=== PATIENT | female | born 1950 | race Caucasian/White ===

== ENCOUNTER 2018-06-12 18:49 | Emergency (ER) | payer OTHER ==
[2018-06-12] MEDS ORDERED: ONDANSETRON DISINTEGRATING 4 MG TAB PO ONE (19:03)
[2018-06-12] MEDS ORDERED: NS 1,000 ML IV ONE (19:03)
[2018-06-12 19:14] LABS: PLATELET COUNT 332 10^3/uL (150-400)
[2018-06-12] MEDS ORDERED: ONDANSETRON 4 MG/2 ML VIAL ONE (19:16)
[2018-06-12] MEDS ORDERED: ONDANSETRON 4 MG/2 ML VIAL IVP ONE (19:17)
--- NOTE | 2018-06-12 19:33 | EDPHY ---
H & P Stated Complaint: abd pain/N/V/D Time Seen by Provider: 06/12/18 19:00 HPI/ROS: CHIEF COMPLAINT: Nausea, loose stools HISTORY OF PRESENT ILLNESS: 68-year-old female presents with nausea and loose stools. 2 weeks ago she had an upper respiratory infection and a prolonged cough. Chest x-ray was unremarkable. After the URI symptoms were resolving, she had an episode of nausea vomiting and loose stools. She was seen in urgent care and given IV fluids and Zofran. She continued to feel somewhat fatigued, but the vomiting resolved within 24 hr. Today she had a recurrent episode of abdominal cramping, followed by loose stools and nausea. No vomiting today. REVIEW OF SYSTEMS: complete 10 point ROS reviewed and is negative except for the noted elements in the HPI - Personal History Current Tetanus/Diphtheria Vaccine: Yes Tetanus Vaccine Date: in the last 10 years - Medical/Surgical History Hx Asthma: No Hx Chronic Respiratory Disease: No Hx Diabetes: No Hx Cardiac Disease: No Hx Renal Disease: No Hx Cirrhosis: No Hx Alcoholism: No Hx HIV/AIDS: No Hx Splenectomy or Spleen Trauma: No Other PMH: Hysterectomy, Bilateral eye surgery for glaucoma, back surgery, arthroscopic surgery right knee, UTI WITH ECOLI - Social History Smoking Status: Never smoked - Physical Exam Exam: General Appearance: Alert, pleasant Eyes: Pupils equal and round, no conjunctival pallor or injection ENT, Mouth: Mucous membranes moist Neck: Normal inspection Respiratory: Lungs are clear to auscultation Cardiovascular: Regular rate and rhythm Gastrointestinal: Abdomen is soft and nontender Neurological: A&O, nonfocal, normal gait Skin: Warm and dry, no rash Extremities: Nontender, no pedal edema Psychiatric: Mood and affect normal Constitutional: Initial Vital Signs Temperature (C) 36.9 C 06/12/18 18:50 Heart Rate 72 06/12/18 18:50 Respiratory Rate 18 06/12/18 18:50 Blood Pressure 204/101 H 06/12/18 18:50 O2 Sat (%) 96 06/12/18 18:50 O2 Delivery Mode Room Air Allergies/Adverse Reactions: Sulfa (Sulfonamide Antibiotics) Allergy (Verified 06/12/18 18:56) Home Medications: Medication Instructions Recorded Calcium Carb W/Vit D [Calcium Carb 500 mg PO BIDMEAL 03/18/14 W/Vit D 500/200 (*)] Cholecalciferol Vit D3 [Vitamin D3 5,000 units PO DAILY 03/18/14 (*)] Herbals/Supplements -Info Only 1 ea PO DAILY 03/18/14 Levothyroxine [Synthroid 50 mcg 50 mcg PO DAILY06 03/18/14 (*)] Phenazopyridine HCl [Pyridium] 200 mg PO TID #10 tab 04/30/16 Cefaclor 250 mg PO TID 5 Days capsule 05/02/16 Ondansetron Odt [Zofran Odt 4 mg 4 mg PO Q4PRN PRN #7 tab 05/02/16 (*)] Sulfamethox/Tmp 800/160 mg 05/02/16 Medical Decision Making ED Course/Re-evaluation: This patient presents with recurrent nausea and loose stools. No actual diarrhea, the stools are formed. Abdominal exam is soft and nontender and I do not suspect small bowel obstruction or intra-abdominal infection. IV normal saline 1 L and Zofran 4 mg IV given. Laboratory tests discussed with the patient. Dietary instructions given. Elevated blood pressure discussed with the patient. BP usually normal. h/o elevated BP in ED's, think due to stress. Will obs for now. Repeat BP 162/85. Pt will check and record BP twice daily, then d/w PCP. Differential Diagnosis: Differential diagnosis includes though it is not limited to appendicitis, cholecystitis, diverticulitis, pyelonephritis, bowel perforation, small bowel obstruction. - Data Points Laboratory Results: Laboratory Results 06/12/18 19:02 06/12/18 19:02 06/12/18 06/12/18 19:02 19:02 WBC 8.49 10^3/uL 10^3/uL (3.80-9.50) RBC 4.25 10^6/uL 10^6/uL (4.18-5.33) Hgb 13.4 g/dL g/dL (12.6-16.3) Hct 39.2 % % (38.0-47.0) MCV 92.2 fL fL (81.5-99.8) MCH 31.5 pg pg (27.9-34.1) MCHC 34.2 g/dL g/dL (32.4-36.7) RDW 11.7 % % (11.5-15.2) Plt Count 332 10^3/uL 10^3/uL (150-400) MPV 8.0 fL L fL (8.7-11.7) Neut % (Auto) 70.9 % % (39.3-74.2) Lymph % (Auto) 20.5 % % (15.0-45.0) [place] % (Auto) 6.2 % % (4.5-13.0) Eos % (Auto) 1.3 % % (0.6-7.6) Baso % (Auto) 0.7 % % (0.3-1.7) Nucleat RBC Rel Count 0.0 % % (0.0-0.2) Absolute Neuts (auto) 6.02 10^3/uL 10^3/uL (1.70-6.50) Absolute Lymphs (auto) 1.74 10^3/uL 10^3/uL (1.00-3.00) Absolute Monos (auto) 0.53 10^3/uL 10^3/uL (0.30-0.80) Absolute Eos (auto) 0.11 10^3/uL 10^3/uL (0.03-0.40) Absolute Basos (auto) 0.06 10^3/uL 10^3/uL (0.02-0.10) Absolute Nucleated RBC 0.00 10^3/uL 10^3/uL (0-0.01) Immature Gran % 0.4 % % (0.0-1.1) Immature Gran # 0.03 10^3/uL 10^3/uL (0.00-0.10) Sodium 135 mEq/L mEq/L (135-145) Potassium 3.9 mEq/L mEq/L (3.3-5.0) Chloride 94 mEq/L L mEq/L (97-110) Carbon Dioxide 30 mEq/l mEq/l (22-31) Anion Gap 11 mEq/L mEq/L (8-16) BUN 14 mg/dL mg/dL (7-23) Creatinine 0.6 mg/dL mg/dL (0.6-1.0) Estimated GFR > 60 Glucose 106 mg/dL H mg/dL (70-100) Calcium 9.6 mg/dL mg/dL (8.5-10.4) Medications Given: Discontinued Medications Sodium Chloride (Ns) 1,000 mls @ 0 mls/hr IV EDNOW ONE; Wide Open PRN Reason: Protocol Stop: 06/12/18 19:04 Last Admin: 06/12/18 19:20 Dose: 1,000 mls Ondansetron HCl (Zofran Odt) 4 mg PO EDNOW ONE Stop: 06/12/18 19:04 Last Admin: 06/12/18 19:21 Dose: Not Given Ondansetron HCl (Zofran) 4 mg IVP EDNOW ONE Stop: 06/12/18 19:18 Last Admin: 06/12/18 19:20 Dose: 4 mg Departure - Departure Disposition: Home, Routine, Self-Care Clinical Impression: Abdominal cramping, Nausea Condition: Good Instructions: Abdominal Pain (ED) Additional Instructions: 1. Clear liquids for 24 hours. 2. Advance diet as tolerated. I suggest the BRAT diet to start: bananas, rice, applesauce and toast. 3. Return for worsening symptoms, persistent vomiting, abdominal pain, any concerns. 4. Follow-up with Dr. Pablo in the office. Referrals: Uzma Pablo MD [Primary Care Provider] - As per Instructions (Call to make an appointment.)
[2018-06-12 20:30] VITALS: BP 167/87
== END 2018-06-12 20:28 | disposition home or self-care (01) ==
DX: R25.2 Cramp and spasm (principal); R11.10 Vomiting, unspecified
CPT/HCPCS: 96374; J2405

== ENCOUNTER 2018-11-02 14:42 | Observation (INO) | payer OTHER ==
[2018-11-02 15:17] LABS: PLATELET COUNT 239 10^3/uL (150-400)
[2018-11-02] MEDS ORDERED: NITROGLYCERIN 0.4 MG BTL SL ONE ×2 (15:36→15:37)
--- NOTE | 2018-11-02 15:45 | EDPHY ---
H & P Stated Complaint: cp Time Seen by Provider: 11/02/18 14:57 HPI/ROS: HPI The patient presents with chest discomfort which she 1st noticed this morning at about 5:00 a.m.. Of note, the patient was diagnosed with hypertension 1 month ago and started on lisinopril which caused fatigue and a mild cough, thus 2 days ago she was switched to amlodipine which she has been taking. She awoke at 1:00 a.m. This morning feeling flushed with headache. She felt dizzy. She thought this was a side effect of her amlodipine. At about 4:00 a.m. She developed vomiting and some achiness of her jaw. She took an old Zofran tab with improvement of her symptoms by 9:00 a.m.. However at 5:00 a.m. She initially developed intermittent chest tightness which she describes as a midsternal ache which is non radiating. This lasts for about 5 min at a time and does not have any alleviating or exacerbating factors. In between these episodes she has about an hour and which she is chest pain-free. She does not have any shortness of breath or cough. She does not have a fever. She has never had chest pain before. She is very active and attended a spinning class 2 days ago without any chest pain or shortness of breath. REVIEW OF SYSTEMS 10 systems were reviewed and negative with the exception of the elements mentioned in the history of present illness. PMHx: Recently diagnosed with hypertension, hypothyroidism Soc Hx: Housed, nonsmoker FHx: No significant family history of CAD, mother at 62 of unrelated illness. PHYSICAL General Appearance: Alert, no distress Eyes: Pupils equal and round no pallor or injection ENT, Mouth: Mucous membranes moist Respiratory: There are no retractions, lungs are clear to auscultation Cardiovascular: Regular rate and rhythm Gastrointestinal: Abdomen is soft and non-tender, no masses, bowel sounds normal Neurological: A&O, moves all extremities Skin: Warm and dry, no rashes Musculoskeletal: Neck is supple non tender Extremities: symmetrical, full range of motion Psychiatric: Patient is oriented X 3, there is no agitation Source: Patient Exam Limitations: No limitations - Personal History Current Tetanus/Diphtheria Vaccine: Yes Current Tetanus Diphtheria and Acellular Pertussis (TDAP): Yes Tetanus Vaccine Date: in the last 10 years - Medical/Surgical History Hx Asthma: No Hx Chronic Respiratory Disease: No Hx Diabetes: No Hx Cardiac Disease: No Hx Renal Disease: No Hx Cirrhosis: No Hx Alcoholism: No Hx HIV/AIDS: No Hx Splenectomy or Spleen Trauma: No Other PMH: Hysterectomy, Bilateral eye surgery for glaucoma, back surgery, arthroscopic surgery right knee, UTI WITH ECOLI, HTN - Social History Smoking Status: Never smoked Constitutional: Initial Vital Signs Temperature (C) 37.2 C 11/02/18 14:53 Heart Rate 75 11/02/18 14:53 Respiratory Rate 16 11/02/18 14:53 Blood Pressure 133/78 H 11/02/18 14:53 O2 Sat (%) 94 11/02/18 14:53 O2 Delivery Mode Room Air Allergies/Adverse Reactions: Sulfa (Sulfonamide Antibiotics) Allergy (Verified 11/02/18 14:51) Home Medications: Medication Instructions Recorded Calcium Carb W/Vit D [Calcium Carb 500 mg PO BIDMEAL 03/18/14 W/Vit D 500/200 (*)] Cholecalciferol Vit D3 [Vitamin D3 5,000 units PO DAILY 03/18/14 (*)] Herbals/Supplements -Info Only 1 ea PO DAILY 03/18/14 Levothyroxine [Synthroid 50 mcg 50 mcg PO DAILY06 03/18/14 (*)] Astaxanthin 11/02/18 Losartan Potassium 11/02/18 Respaire-30 Capsule 11/02/18 Medical Decision Making - Diagnostics EKG Interpretation: EKG: Complete interpretation has been separately recorded in the [facility] archive. Summary impression: Sub [address] segment elevation in V1 and V2, there is ST segment depression in V4 through V6, there is no old for comparison. Imaging Results: Imaging Impressions Chest X-Ray 11/02/18 15:36 Impression: Hyperexpanded which can be seen with airways disease or COPD. Imaging: I viewed and interpreted images myself Differential Diagnosis: This is a 68-year-old female with recent diagnosis of hypertension, started amlodipine 2 days ago, presents with intermittent midsternal chest pain which she describes as aching and tight. Earlier in the morning she had vomiting, dizziness, aching of her jaw. All of these have resolved though she is left with intermittent chest pain. Currently, her chest pain is very mild though present. Her vital signs are normal with slightly elevated blood pressure of 140/70. In the emergency department, EKG was performed which showed some abnormalities. Initial troponin was 0. Remainder of labs were unremarkable. Nitroglycerin has been ordered. Differential diagnosis includes ACS, GERD, costochondritis. 3:46 p.m.- I consulted with the on-call webfed offset press operator Wes PA from [facility]. Their service will come to evaluate the patient. 4:33 p.m.- Patient is chest pain-free. She did receive nitroglycerin though did not have any chest pain preceding this. She was seen by the cardiology PA and staffed with Dr. Wilde. Plan for admission to the hospitalist service for repeat troponins and likely provocative testing tomorrow morning. Case discussed with Dr. Reynoso for admission. - Data Points Laboratory Results: Laboratory Results 11/02/18 15:08 11/02/18 15:08 11/02/18 11/02/18 11/02/18 15:12 15:08 15:08 WBC RBC Hgb Hct MCV MCH MCHC RDW Plt Count MPV Neut % (Auto) Lymph % (Auto) [place] % (Auto) Eos % (Auto) Baso % (Auto) Nucleat RBC Rel Count Absolute Neuts (auto) Absolute Lymphs (auto) Absolute Monos (auto) Absolute Eos (auto) Absolute Basos (auto) Absolute Nucleated RBC Immature Gran % Immature Gran # Sodium 132 mEq/L L mEq/L (135-145) Potassium 3.9 mEq/L mEq/L (3.5-5.2) Chloride 101 mEq/L mEq/L (97-110) Carbon Dioxide 23 mEq/l mEq/l (22-31) Anion Gap 8 mEq/L mEq/L (6-14) BUN 12 mg/dL mg/dL (7-23) Creatinine 0.6 mg/dL mg/dL (0.6-1.0) Estimated GFR > 60 Glucose 102 mg/dL H mg/dL (70-100) Calcium 9.3 mg/dL mg/dL (8.5-10.4) Total Bilirubin 1.2 mg/dL mg/dL (0.1-1.4) Conjugated Bilirubin 0.3 mg/dL mg/dL (0.0-0.5) Unconjugated Bilirubin 0.9 mg/dL mg/dL (0.0-1.1) AST 31 IU/L IU/L (14-46) ALT 33 IU/L IU/L (9-52) Alkaline Phosphatase 71 IU/L IU/L (38-126) POC Troponin I 0.00 ng/mL ng/mL (0.00-0.08) Total Protein 7.8 g/dL g/dL (6.3-8.2) Albumin 4.9 g/dL g/dL (3.5-5.0) TSH 0.543 uIU/mL uIU/mL (0.465-4.680) 11/02/18 15:08 WBC 7.76 10^3/uL 10^3/uL (3.80-9.50) RBC 4.45 10^6/uL 10^6/uL (4.18-5.33) Hgb 14.2 g/dL g/dL (12.6-16.3) Hct 41.7 % % (38.0-47.0) MCV 93.7 fL fL (81.5-99.8) MCH 31.9 pg pg (27.9-34.1) MCHC 34.1 g/dL g/dL (32.4-36.7) RDW 11.6 % % (11.5-15.2) Plt Count 239 10^3/uL 10^3/uL (150-400) MPV 8.3 fL L fL (8.7-11.7) Neut % (Auto) 85.5 % H % (39.3-74.2) Lymph % (Auto) 8.5 % L % (15.0-45.0) [place] % (Auto) 5.2 % % (4.5-13.0) Eos % (Auto) 0.0 % L % (0.6-7.6) Baso % (Auto) 0.5 % % (0.3-1.7) Nucleat RBC Rel Count 0.0 % % (0.0-0.2) Absolute Neuts (auto) 6.64 10^3/uL H 10^3/uL (1.70-6.50) Absolute Lymphs (auto) 0.66 10^3/uL L 10^3/uL (1.00-3.00) Absolute Monos (auto) 0.40 10^3/uL 10^3/uL (0.30-0.80) Absolute Eos (auto) 0.00 10^3/uL L 10^3/uL (0.03-0.40) Absolute Basos (auto) 0.04 10^3/uL 10^3/uL (0.02-0.10) Absolute Nucleated RBC 0.00 10^3/uL 10^3/uL (0-0.01) Immature Gran % 0.3 % % (0.0-1.1) Immature Gran # 0.02 10^3/uL 10^3/uL (0.00-0.10) Sodium Potassium Chloride Carbon Dioxide Anion Gap BUN Creatinine Estimated GFR Glucose Calcium Total Bilirubin Conjugated Bilirubin Unconjugated Bilirubin AST ALT Alkaline Phosphatase POC Troponin I Total Protein Albumin TSH Medications Given: Discontinued Medications Aspirin (Aspirin) 81 mg PO EDNOW ONE Stop: 11/02/18 16:38 Last Admin: 11/02/18 16:49 Dose: 81 mg Nitroglycerin (Nitrostat) 0.4 mg SL EDNOW ONE Stop: 11/02/18 15:37 Last Admin: 11/02/18 16:18 Dose: 0.4 mg Ondansetron HCl (Zofran) 4 mg IVP EDNOW ONE Stop: 11/02/18 16:29 Last Admin: 11/02/18 16:29 Dose: 4 mg Point of Care Test Results: Chemistry 11/02/18 15:12 POC Troponin I 0.00 ng/mL ng/mL (0.00-0.08) Departure - Departure Disposition: [facility] Inpatient Acute Clinical Impression: Abnormal EKG Chest pain Qualifiers: Chest pain type: unspecified Qualified Code(s): R07.9 - Chest pain, unspecified HTN (hypertension) Qualifiers: Hypertension type: essential hypertension Qualified Code(s): I10 - Essential ( primary) hypertension Condition: Fair
[2018-11-02] MEDS ORDERED: ONDANSETRON 4 MG/2 ML VIAL ONE (16:26)
[2018-11-02] MEDS ORDERED: ONDANSETRON 4 MG/2 ML VIAL IVP ONE (16:28)
[2018-11-02] MEDS ORDERED: ASPIRIN 81 MG CHEWABLE TAB PO ONE (16:37)
[2018-11-02] MEDS ORDERED: ASPIRIN 81 MG CHEWABLE TAB ONE (16:49)
[2018-11-02] MEDS ORDERED: NITROGLYCERIN 0.4 MG BTL SL PRN (17:16)
[2018-11-02] MEDS ORDERED: NS 1,000 ML IV SCH (17:45)
--- NOTE | 2018-11-02 17:53 | PDGENHP ---
<Karen Vidales - Last Filed: 11/02/18 18:17> History and Physical - Chief Complaint Chest pain - History of Present Illness HPI: This is a healthy, active 68 y/o female with hx of recent hypertension presenting with chest pain that started this morning. She was diagnosed one month prior with hypertension and was started on lisinopril but had to switch to amlodipine 2 days ago because lisinopril caused fatigue and a mild cough. This morning, she woke up at 1:00am with a feeling of anxiety and feeling flushed with a severe headache as well as dizziness. Around 4:00am, she developed vomiting (no hematemesis) x 4 bouts and achiness to bilateral jaw. She developed intermittent midsternal chest pressure/ache with an intensity 3/ 10. It would last 5 minutes and an hour would pass before the next CP. She has never experienced this before and thought either amlodipine or cold/flu were the cause for the symptoms. EKG was abnormal with sub 1mm ST elevation in V1 and V2 and ST depression in V4-V6. First troponin was negative. She received nitroglycerin in the ER and since that time, she is chest pain free but c/o mild nausea and headache still being present. She is being admitted for further diagnostic work-up and monitoring. Past Medical History 1. Recently dx'ed with hypertension a month ago (150s/90s) 2. Hypothyroidism Past Surgical History 1. Hysterectomy 2. Bilateral eye surgery for glaucoma 3. Scope of right knee 4. Back surgery Social 1. . Lives in [place]. Works at [employer] at a [employer]. 2. Denies tobacco or illicit drug use. Drinks 1 glass of wine/day. History Information - Allergies/Home Medication List Allergies/Adverse Reactions: Sulfa (Sulfonamide Antibiotics) Allergy (Verified 11/02/18 14:51) Home Medications: Cholecalciferol Vit D3 [Vitamin D3 2000 units tab (OTC)] 2,000 units PO DAILY [Last Taken Unknown] Herbals/Supplements -Info Only 1 ea PO DAILY 11/02/18 [Last Taken Unknown] Levothyroxine [Synthroid 25 mcg (*)] 25 mcg PO SUMOWEFR@06 11/02/18 [Last Taken Unknown] Levothyroxine [Synthroid 50 mcg (*)] 50 mcg PO DAILY06 11/02/18 [Last Taken Unknown] Losartan Potassium [Cozaar 25 mg (*)] 25 mg PO DAILY 11/02/18 [Last Taken Unknown] I have personally reviewed and updated: family history, medical history, social history, surgical history Past Medical History: See HPI list - Surgical History Additional surgical history: See HPI list - Family History Positive for: non-pertinent Additional family history: Mother at 62 y/o d/t suicide by drug overdose. Father is in great health - Social History Smoking Status: Never smoked Alcohol Use: Occasionally Drug Use: None Review of Systems Review of Systems: ROS: 10pt was reviewed & negative except for what was stated in HPI & below Physical Exam Physical Exam: Lab data and imaging were reviewed. Case discussed with admitting physician, Dr. Lori Reynoso. Na: 132 BUN/Cr: 12/0.6 TSH: 0.543 Troponin: 0.00 EKG: see HPI list CXR: hyperexpanded as seen in someone with airway disease or COPD Temp Pulse Resp BP Pulse Ox 37.2 C 71 14 142/77 H 97 11/02/18 14:53 11/02/18 17:00 11/02/18 17:00 11/02/18 17:00 11/02/18 17:00 Constitutional: no apparent distress, appears nourished, not in pain Eyes: PERRL, anicteric sclera, EOMI Ears, Nose, Mouth, Throat: moist mucous membranes, hearing normal, ears appear normal, no oral mucosal ulcers Cardiovascular: regular rate and rhythym, no murmur, rub, or gallop, No edema Peripheral Pulses: 2+: dorsalis-pedis (R) (Radial 2+), dorsalis-pedis (L) ( Radial 2+) Respiratory: no respiratory distress, no rales or rhonchi, clear to auscultation Gastrointestinal: normoactive bowel sounds, soft, non-tender abdomen, no palpable masses Genitourinary: no bladder fullness, no bladder tenderness Skin: warm, normal color, no rashes or abrasions, no fluctuance, no induration, No mottled Musculoskeletal: full muscle strength, no muscle tenderness, normal joint ROM, no joint effusions Neurologic: AAOx3, sensation intact bilaterally, CN II-XII Intact Psychiatric: interacting appropriately, not anxious, not encephalopathic, thought process linear Lymph, Heme, Immunologic: no cervical LAD, no supraclavicular LAD Lab Data & Imaging Review 11/02/18 15:08 11/02/18 15:08 WBC 7.76 10^3/uL (3.80-9.50) 11/02/18 15:08 RBC 4.45 10^6/uL (4.18-5.33) 11/02/18 15:08 Hgb 14.2 g/dL (12.6-16.3) 11/02/18 15:08 Hct 41.7 % (38.0-47.0) 11/02/18 15:08 MCV 93.7 fL (81.5-99.8) 11/02/18 15:08 MCH 31.9 pg (27.9-34.1) 11/02/18 15:08 MCHC 34.1 g/dL (32.4-36.7) 11/02/18 15:08 RDW 11.6 % (11.5-15.2) 11/02/18 15:08 Plt Count 239 10^3/uL (150-400) 11/02/18 15:08 MPV 8.3 fL (8.7-11.7) L 11/02/18 15:08 Neut % (Auto) 85.5 % (39.3-74.2) H 11/02/18 15:08 Lymph % (Auto) 8.5 % (15.0-45.0) L 11/02/18 15:08 [place] % (Auto) 5.2 % (4.5-13.0) 11/02/18 15:08 Eos % (Auto) 0.0 % (0.6-7.6) L 11/02/18 15:08 Baso % (Auto) 0.5 % (0.3-1.7) 11/02/18 15:08 Nucleat RBC Rel Count 0.0 % (0.0-0.2) 11/02/18 15:08 Absolute Neuts (auto) 6.64 10^3/uL (1.70-6.50) H 11/02/18 15:08 Absolute Lymphs (auto) 0.66 10^3/uL (1.00-3.00) L 11/02/18 15:08 Absolute Monos (auto) 0.40 10^3/uL (0.30-0.80) 11/02/18 15:08 Absolute Eos (auto) 0.00 10^3/uL (0.03-0.40) L 11/02/18 15:08 Absolute Basos (auto) 0.04 10^3/uL (0.02-0.10) 11/02/18 15:08 Absolute Nucleated RBC 0.00 10^3/uL (0-0.01) 11/02/18 15:08 Immature Gran % 0.3 % (0.0-1.1) 11/02/18 15:08 Immature Gran # 0.02 10^3/uL (0.00-0.10) 11/02/18 15:08 Sodium 132 mEq/L (135-145) L 11/02/18 15:08 Potassium 3.9 mEq/L (3.5-5.2) 11/02/18 15:08 Chloride 101 mEq/L (97-110) 11/02/18 15:08 Carbon Dioxide 23 mEq/l (22-31) 11/02/18 15:08 Anion Gap 8 mEq/L (6-14) 11/02/18 15:08 BUN 12 mg/dL (7-23) 11/02/18 15:08 Creatinine 0.6 mg/dL (0.6-1.0) 11/02/18 15:08 Estimated GFR > 60 11/02/18 15:08 Glucose 102 mg/dL (70-100) H 11/02/18 15:08 Calcium 9.3 mg/dL (8.5-10.4) 11/02/18 15:08 Total Bilirubin 1.2 mg/dL (0.1-1.4) 11/02/18 15:08 Conjugated Bilirubin 0.3 mg/dL (0.0-0.5) 11/02/18 15:08 Unconjugated Bilirubin 0.9 mg/dL (0.0-1.1) 11/02/18 15:08 AST 31 IU/L (14-46) 11/02/18 15:08 ALT 33 IU/L (9-52) 11/02/18 15:08 Alkaline Phosphatase 71 IU/L (38-126) 11/02/18 15:08 POC Troponin I 0.00 ng/mL (0.00-0.08) 11/02/18 15:12 Total Protein 7.8 g/dL (6.3-8.2) 11/02/18 15:08 Albumin 4.9 g/dL (3.5-5.0) 11/02/18 15:08 TSH 0.543 uIU/mL (0.465-4.680) 11/02/18 15:08 Assessment & Plan Plan: This is a 68 y/o female with recently diagnosed hypertension presenting with acute symptoms of general malaise, PRINCE, vomiting, achy jaw, and chest pressure. Differential diagnoses are the following but not limited to: CAD, angina, CO, URI. #Chest pain: heart score 5 (moderately suspicious, non-specific repolarization disturbance, age, risk factors). Abnormal EKG. First troponin negative. She received nitroglycerin and ASA; is currently CP free. -Wes Gomez NP for [facility] evaluated pt while in ED. Will perform NM treadmill test in AM if trop and EKG are unremarkable tonight. -Cycle trop tonight at 2100 and in AM -Cycle EKG at 1700, in AM, and PRN if condition changes -Lipid panel tomorrow -Nitro PRN -ASA QD -Cont tele monitoring -NPO at midnight tonight #Headache and nausea: treat with Tylenol and Zofran PRN. Cold compress. #Mild hyponatremia (132): IVF x 1 bag overnight. CBC/CMP in AM #Hypertension: BP currently 125/59. Normotensive. Her PCP changed her HTN medication today to Losartan which she may begin tonight. #Hypothyroidism: TSH 0.543. On levothyroxine. Diet: Cardiac, NPO @ midnight tonight VTE ppx: SCDs Code: Full Dispo: Admit to obs <Lori Reynoso - Last Filed: 11/02/18 23:24> History and Physical - History of Present Illness Review of Systems Review of Systems: Physical Exam Physical Exam: Temp Pulse Resp BP Pulse Ox 37.0 C 79 18 139/79 H 96 11/02/18 21:10 11/02/18 21:10 11/02/18 21:10 11/02/18 21:10 11/02/18 21:10 Lab Data & Imaging Review 11/02/18 15:08 11/02/18 15:08 WBC 7.76 10^3/uL (3.80-9.50) 11/02/18 15:08 RBC 4.45 10^6/uL (4.18-5.33) 11/02/18 15:08 Hgb 14.2 g/dL (12.6-16.3) 11/02/18 15:08 Hct 41.7 % (38.0-47.0) 11/02/18 15:08 MCV 93.7 fL (81.5-99.8) 11/02/18 15:08 MCH 31.9 pg (27.9-34.1) 11/02/18 15:08 MCHC 34.1 g/dL (32.4-36.7) 11/02/18 15:08 RDW 11.6 % (11.5-15.2) 11/02/18 15:08 Plt Count 239 10^3/uL (150-400) 11/02/18 15:08 MPV 8.3 fL (8.7-11.7) L 11/02/18 15:08 Neut % (Auto) 85.5 % (39.3-74.2) H 11/02/18 15:08 Lymph % (Auto) 8.5 % (15.0-45.0) L 11/02/18 15:08 [place] % (Auto) 5.2 % (4.5-13.0) 11/02/18 15:08 Eos % (Auto) 0.0 % (0.6-7.6) L 11/02/18 15:08 Baso % (Auto) 0.5 % (0.3-1.7) 11/02/18 15:08 Nucleat RBC Rel Count 0.0 % (0.0-0.2) 11/02/18 15:08 Absolute Neuts (auto) 6.64 10^3/uL (1.70-6.50) H 11/02/18 15:08 Absolute Lymphs (auto) 0.66 10^3/uL (1.00-3.00) L 11/02/18 15:08 Absolute Monos (auto) 0.40 10^3/uL (0.30-0.80) 11/02/18 15:08 Absolute Eos (auto) 0.00 10^3/uL (0.03-0.40) L 11/02/18 15:08 Absolute Basos (auto) 0.04 10^3/uL (0.02-0.10) 11/02/18 15:08 Absolute Nucleated RBC 0.00 10^3/uL (0-0.01) 11/02/18 15:08 Immature Gran % 0.3 % (0.0-1.1) 11/02/18 15:08 Immature Gran # 0.02 10^3/uL (0.00-0.10) 11/02/18 15:08 Sodium 132 mEq/L (135-145) L 11/02/18 15:08 Potassium 3.9 mEq/L (3.5-5.2) 11/02/18 15:08 Chloride 101 mEq/L (97-110) 11/02/18 15:08 Carbon Dioxide 23 mEq/l (22-31) 11/02/18 15:08 Anion Gap 8 mEq/L (6-14) 11/02/18 15:08 BUN 12 mg/dL (7-23) 11/02/18 15:08 Creatinine 0.6 mg/dL (0.6-1.0) 11/02/18 15:08 Estimated GFR > 60 11/02/18 15:08 Glucose 102 mg/dL (70-100) H 11/02/18 15:08 Calcium 9.3 mg/dL (8.5-10.4) 11/02/18 15:08 Total Bilirubin 1.2 mg/dL (0.1-1.4) 11/02/18 15:08 Conjugated Bilirubin 0.3 mg/dL (0.0-0.5) 11/02/18 15:08 Unconjugated Bilirubin 0.9 mg/dL (0.0-1.1) 11/02/18 15:08 AST 31 IU/L (14-46) 11/02/18 15:08 ALT 33 IU/L (9-52) 11/02/18 15:08 Alkaline Phosphatase 71 IU/L (38-126) 11/02/18 15:08 POC Troponin I 0.00 ng/mL (0.00-0.08) 11/02/18 15:12 Troponin I < 0.012 ng/mL (0.000-0.034) 11/02/18 20:36 Total Protein 7.8 g/dL (6.3-8.2) 11/02/18 15:08 Albumin 4.9 g/dL (3.5-5.0) 11/02/18 15:08 TSH 0.543 uIU/mL (0.465-4.680) 11/02/18 15:08 Assessment & Plan Assessment: Abnormal EKG (Acute) Chest pain (Acute) HTN (hypertension) (Acute) Plan: Chart reviewed. Pt seen and evaluated. Agree with plan as outlined above.
[2018-11-02] MEDS ORDERED: ONDANSETRON 4 MG/2 ML VIAL IVP PRN (17:56)
[2018-11-02] MEDS ORDERED: ONDANSETRON DISINTEGRATING 4 MG TAB PO PRN (17:56)
[2018-11-02] MEDS: LOSARTAN POTASSIUM 25 MG TAB PO SCH (18:43)
--- NOTE | 2018-11-02 19:26 | CPEKG ---
Test Reason : OPEN Blood Pressure : / mmHG Vent. Rate : 077 BPM Atrial Rate : 077 BPM P-R Int : 164 ms QRS Dur : 079 ms QT Int : 392 ms P-R-T Axes : 061 035 037 degrees QTc Int : 444 ms Sinus rhythm Anteroseptal infarct, age indeterminate Confirmed by Ping Knutson ([id number]) on 11/02/2018 7:26:26 PM Referred By: Dana Hidalgo Confirmed By:Ping Knutson
[2018-11-02] MEDS: ACETAMINOPHEN 325 MG TAB PO PRN (20:41)
--- NOTE | 2018-11-02 21:27 | GCON ---
[f rep st] CONSULTATION CARDIOLOGY CONSULTATION REFERRING PHYSICIAN: Dana Hidalgo MD INDICATION FOR CARDIOLOGY CONSULTATION: Chest pressure and abnormal electrocardiogram. HISTORY OF PRESENT ILLNESS: The patient is a 68 year old female with significant past history of hypertension. She reports that approximately 3 weeks to a month ago, she had been started on antihypertensive of lisinopril. She had been on it for approximately 3 weeks, in which she states that she started developing fatigue symptoms, and also a developing a cough. She had recently seen her PCP, who had transitioned her over to [facility]. She states that she started taking the medication approximately 2 days ago, stating usually at 5 p.m. in the afternoon. She had been noticing lightheadedness with drug. She has taken total 2 doses. She does state waking up this morning, around 1 a.m. with a significant headache and nausea. She did note some dizziness. She thought potentially this may have been her medications, and attempted to go back to sleep. She did say around 4 a.m. she did start vomiting and developing bilateral jaw pain. She had some old Zofran, which she took, which did report helping the nausea, but at approximately 5 a.m., she developed a midsternal chest pressure (no associated symptoms shortness of breath or diaphoresis). She states the pain waxed and waned throughout the day. She did call her PCP, who felt potentially this could be amlodipine, discontinued, and ordered a new prescription of losartan. She did not start this medication. She says by noon, she felt the symptoms had worsened and she went to urgent care, still reporting of headache, nausea, and waxing and waning chest pain and jaw pain. She states that they swabbed her and she was negative for influenza. She was sent to the emergency department for further evaluation. Upon arrival to the ED, electrocardiogram was done, it was noted that she was in sinus rhythm, normal axis, with Q-waves noted in V1 and V2, and inverted T-waves in V3 through V6. A troponin level was also done, which was 0.00. She states after approximately 30 minutes in the ED, her chest pain and jaw pain have dissipated. She did receive 1 sublingual nitroglycerin afterwards (no pain), with which she did report some mild flushing and increased headache. She states that currently her headache is a 2/10. She reports no neurological changes. She states prior to this episode, she had been in her normal state health, reporting no recent fevers, chills, night sweats; just fatigue symptoms as mentioned above. She states also multiple times when she was on lisinopril over the last 3 weeks, she had noted a sudden accelerated heart rate that would last 3-5 minutes with some mild lightheadedness, no near-syncope or syncopal events. She reports no orthopnea, PND, edema, sudden weight gain. She reports no bleeding issues. Patient with significant cardiac risk factors that include age and hypertension. She denies any family history of CAD, hyperlipidemia, peripheral vascular disease, or diabetes. PAST MEDICAL HISTORY: Patient with significant past history that includes hypothyroidism, hypertension, glaucoma, and osteoarthritis. PAST SURGICAL HISTORY: Includes hysterectomy, previous back surgery, arthroscopic surgery to the right knee. SOCIAL HISTORY: She is . She has 3 adult daughters who are alive and well. She is retired. She exercises on a routine basis, reporting undergoing a spin class 2 days ago without any symptoms. She denies any history of smoking. Occasional alcohol. Denies any illicit drug use. FAMILY HISTORY: Patient reports maternal uncle recently underwent heart surgery. She is uncertain what type of surgery, at age greater than 80. No other significant history of heart disease at early onset and no history of sudden cardiac . ALLERGIES: Sulfa. HOME MEDICATIONS: Include calcium carbonate 500 mg p.o. b.i.d., vitamin D 5000 units p.o. daily, herbs and supplements, levothyroxine 50 mcg p.o. daily, ____, and she has just been started on losartan at 25 mg p.o. daily, and which she has not taken a dose and just came off amlodipine. REVIEW OF SYSTEMS: A 10-point review of systems done on this patient, all negative except as mentioned above. PHYSICAL EXAMINATION: GENERAL APPEARANCE: Thin, well-groomed female. She is alert and oriented to person, place, time, and situation. Appears to be under no acute distress. VITAL SIGNS: Current blood pressure 142 /77, heart rate of 71, respirations 14, saturating 97%. On admission, her temperature was 37.2 degrees. HEENT: Head is normocephalic. Lips and tongue are pink and moist with no signs of cyanosis. Conjunctivae pink. NECK: Trachea is midline, +2 carotid pulses bilateral. No auscultated bruits, no jugular vein distention. RESPIRATORY: Lungs are clear to auscultation, no rhonchi, rales, or wheezes. No accessory muscle use. No intercostal muscle retraction noted. CARDIAC: Regular rate, regular rhythm, S1, S2, no S3, S4, gallops, rubs, or murmurs noted. ABDOMEN: Soft, nontender, bowel sounds x4 quadrants. No organomegaly. No palpable masses. SKIN: [place], warm, dry, no cyanosis, no clubbing, no peripheral edema. VASCULAR: +2 carotids bilateral, + 2 radials bilateral, +2 dorsal pedal and posterior tibial pulses bilateral. LABORATORY STUDIES: Laboratory studies drawn today show WBC of 7.76, hemoglobin of 14.2, hematocrit of 41.7, platelet count of 239. Sodium 132, potassium 3.9, chloride 101, CO2 of 23, BUN 12, creatinine 0.6, glucose 102, calcium 9.3, total bilirubin 1.2. AST 31, ALT 33, alkaline phosphate 71. Troponin of 0.00. Total protein 7.8, albumin 4.9. TSH is currently pending. STUDIES: Electrocardiogram as mentioned above. Chest x-ray done showing no acute cardiopulmonary process. ASSESSMENT/PLAN: 1. Chest pain: Currently pain-free. Patient reporting midsternal chest pressure this morning and also jaw pain. She does have significant cardiac risk factors that include age and hypertension. Her initial troponin was 0.00. At this time, I have ordered for her to have an aspirin 81 mg p.o. daily. She is being admitted by the hospitalist to the PCU, on which she will be placed under continuous cardiac monitoring. We will plan on cycling her troponins. If they do become positive, then we will plan on her undergoing coronary angiogram. If they remain negative, then will plan for her to have an ETT/MPI study done tomorrow morning for further risk stratification. If her chest pain recurs or she has any significant EKG changes, she can always be taken to the [facility] in an urgent fashion. 2. Hypertension: Patient with noted history of hypertension, she is noted to be mildly elevated today. She reports recent adverse reaction of cough with lisinopril, and has taken 2 doses of amlodipine, with concerns that potentially this may have caused some of her symptoms. Her PCP had ordered her losartan at 25 mg p.o. daily, and which she has not started as of this time. Will order for her to start losartan 25 mg p.o. daily. Will monitor blood pressure, adjust as necessary. 3. Accelerated heart rate: Patient reporting over the last month of noticing an accelerated heart rate with some lightheadedness while taking lisinopril, reporting none in the last few days. Reporting episodes usually last between 3 and 5 minutes. Will plan for to be on continuous stock lifter during hospitalization. She is noted to have hypothyroidism. I have ordered for a TSH to be done and it is currently pending. She was noted to have mildly low sodium at 132, rest of her electrolyte renal function within normal limits. CBC showed no elevated white count, normal H&H. Pending on if she has any more symptoms, potentially patient may benefit from an outpatient Holter monitoring. 4. Nausea: The patient reports nausea has improved since taking Zofran. As needed Zofran has been ordered. 5. Headache: Patient reporting waking up with significant headache this morning, potentially adverse reaction with amlodipine. Reporting symptoms have improved, currently pain-free. No neurological deficit. Will continue to monitor. 6. Hypothyroidism: Patient with history of hypothyroidism. Will defer to hospitalist services to reorder home medication of Synthroid. Thank you for this consultation. We will be glad to follow along with you. /[id number]/MODL MTDD
[2018-11-03] MEDS: ACETAMINOPHEN 325 MG TAB PO PRN (01:13)
[2018-11-03 04:41] LABS: PLATELET COUNT 199 10^3/uL (150-400)
[2018-11-03] MEDS ORDERED: LEVOTHYROXINE 25 MCG TAB PO SCH (06:00)
[2018-11-03] MEDS ORDERED: LEVOTHYROXINE 50 MCG TAB PO SCH (06:00)
[2018-11-03] MEDS ORDERED: CHOLECALCIFEROL VIT D3 2,000 UNITS TAB/CAP PO SCH (09:00)
[2018-11-03] MEDS ORDERED: ASPIRIN 81 MG CHEWABLE TAB PO SCH (09:00)
--- NOTE | 2018-11-03 11:18 | CPR ---
[f rep st] NONINVASIVE CARDIAC PROCEDURE REPORT PROCEDURE PERFORMED: Exercise treadmill with exercise treadmill myocardial perfusion imaging study. SUPERVISING CAREER AND TECHNOLOGY EDUCATION TEACHER: José Miguel Wilde MD. INDICATION FOR PROCEDURE: Chest pain and abnormal electrocardiogram. PRE: After obtaining informed consent, the patient was placed on EKG, noting sinus rhythm, normal ax is, 0.[address] depression in inferolateral leads. The patient reports no chest pain, pressure, or symptoms suggestive of ischemia. Initial blood pressure 102/70, saturation 96% on room air. STRESS: The patient was placed on exercise treadmill, following standard [place] protocol [facility]. 1. Patient exercised for 6 minutes 12 seconds. 2. 7.4 METS. 3. She attained a heart rate of 156 beats per minute which was 102% of her MPHR. 4. Patient had no chest pain or symptoms suggesting of ischemia. 5. Patient was noted to have worsening ST depression in her inferolateral leads up to 1.5 mm. 6. Patient maintained sinus rhythm with occasional PAC. No other malignant arrhythmias or pauses we re noted during rest, stress, or recovery phases. 7. BP response resting 102/78, peak 158/62. 8. Patient maintained SpO2 greater than 90% throughout testing. 9. Testing was stopped due to maximum effort. 10. Wagoner treadmill score of 1, placing her at moderate risk. RECOVERY: Patient recovered for 5 minutes. EKG returned to baseline. No arrhythmias. She remained asymptomatic. Vital signs remained stable. IMPRESSION: A 68-year-old female undergoing ETT MPI study due to complaint of chest pressure yesterd ay evening, yesterday morning and noted to have abnormal electrocardiogram on admission. The patient noted pre procedure to have already ST depression in inferolateral leads at rest. ST depression wor sened with exertion to 1.5 mm in inferolateral leads. She was asymptomatic of symptoms suggesting of ischemia. Test is equivocal for ischemia, but with her abnormal resting stress test, the specificit y of this testing comes into question. Patient will be taken to Nuclear Medicine for post-stress whitley ging, in which full evaluation of her ischemia should be depended on. /[id number]/MODL
--- NOTE | 2018-11-03 11:52 | CPEKG ---
Test Reason : OPEN Blood Pressure : / mmHG Vent. Rate : 074 BPM Atrial Rate : 153 BPM P-R Int : 182 ms QRS Dur : 077 ms QT Int : 399 ms P-R-T Axes : 074 047 050 degrees QTc Int : 443 ms Sinus rhythm Confirmed by Blaine Jara ([id number]) on 11/03/2018 11:52:11 AM Referred By: Lori Reynoso Confirmed By:Blaine Jara
--- NOTE | 2018-11-03 12:33 | ASMTCMCOM ---
CM Note CM Note Notes: Pts case discussed in tx rounds. Pt is a 68 y/o female admitted for chest pain. Pt is having a stress test today. Pt will most likely d/c independent when medically stable. No therapies ordered at this time. CM available for changes. Plan: Independent Date Signed: 11/03/2018 12:32 PM Electronically Signed By:LA Snow
[2018-11-03] MEDS ORDERED: diphenhydrAMINE 25 MG CAP PO ONE (13:02)
[2018-11-03] MEDS ORDERED: ASPIRIN EC 325 MG TAB PO ONE (13:02)
[2018-11-03] MEDS ORDERED: TEMAZEPAM 15 MG CAP PO PRN (13:02)
[2018-11-03] MEDS ORDERED: DIAZEPAM 5 MG TAB PO ONE (13:02)
[2018-11-03] MEDS ORDERED: FAMOTIDINE 20 MG TAB PO ONE (13:02)
[2018-11-03] MEDS ORDERED: NS 1,000 ML IV SCH (13:15)
[2018-11-03] MEDS ORDERED: MIDAZOLAM 2 MG/2 ML VIAL ONE ×2 (13:45→15:03)
[2018-11-03] MEDS ORDERED: fentaNYL 100 MCG/2 ML INJ ONE (13:45)
[2018-11-03] MEDS ORDERED: LIDOCAINE 1% 300 MG/30 ML SDV ONE (13:45)
[2018-11-03] MEDS ORDERED: IOPAMIDOL (ISOVUE-370) 150 ML BTL IV ONE (13:46)
--- NOTE | 2018-11-03 14:15 | PDPROPOC ---
Sedation Plan of Care Sedation Plan of Care: vital signs stable, mental status noted, patient educated of risks, benefits, alternatives, patient can tolerate sedation ASA Classification: ASA 3 Planned drugs: fentanyl, midazolam Mallampati Score: Class 2 Mallampati Reference Image: Patient passed 3-3-2 rule?: Yes
--- NOTE | 2018-11-03 14:15 | PDHPUP ---
History & Physical Update H&P update statement: This history and physical update is based on an assessment of the patient which was completed after admission or registration (within 24 hours), but prior to the surgery/procedure. H&P update: H&P reviewed & patient examined, no change in patient's condition since H&P completed
[2018-11-03] MEDS ORDERED: VERAPAMIL 5 MG/2 ML VIAL ONE (14:24)
[2018-11-03] MEDS ORDERED: HEPARIN 10,000 UNIT/10 ML MDV (1,000 UNIT/ML) ONE (14:31)
--- NOTE | 2018-11-03 14:53 | PDDXCAT ---
Diagnostic Cath Note - . Date: 11/03/18 Health Screener: Andry Indication: other (intermediate risk stress test) - Procedure Access: left wrist Procedure: left heart catheterization, coronary angiography, left ventriculogram - Materials Left Heart Cath size: 5F Left Heart Cath materials: JL3.5, JR4.0, pigtail - Findings-Left Heart Catheterization LM: The left main is 4mm in size and bifurcates into and LAD and circumflex system. There is DEAN III flow throughout. LAD: The left anterior descending is 3.5mm in size and arises in its usual location. The vessel gives rise to 2 important diagonal branches all of which are free of significant flow limiting obstruction. LCX: The left circummflex is non-dominant. The vessel gives rise to 2 important obtuse marginal branches. There is no evidence of flow-limiting obstruction. There is DEAN III flow throughout. RCA: The RCA is 2.5mm in size and dominant. There is no evidence of flow- limiting disease. There is DEAN III flow throughout. EDP: 19mmHg LVEF: 65% Wall motion: On the LV gram there is normal LV systolic function. The EF is 65% . There are no resting segmental wall motion abnormalities. The visualized portion of the thoracic aortic valve reveals three sinuses of valsalva most consistent with a trileaflet valve. There is no gradient on pullback across the aortic valve. THere is no evidence of rachel dissection or aneurysm formation of the thoracic aorta. - Findings-Right Heart Catheterization AO: 107//84 Complications: NONE Estimated blood loss: <50ml Closure method: TR Band Assessment: The patient has no significant coronary disease. She has a normal systolic LV function and ejection fraction measuring 65%. She is hypertensive and should be medically managed. Her EDP is mildly elevated measuring 19mmHg. Plan: The patient is hypertensive and should be managed medically to achieve a systolic pressure under 130mmHg. The patient has noted frequent palpitations I would like her to follow up with [facility] and have a 30-Day monitor placed. The patient should call the office at [phone] to have the testing scheduled as well as a follow up visit. Intervention: NONE Patient Problems: Problems Problem Status Onset Abnormal EKG Acute Chest pain Acute HTN (hypertension) Acute Uterovaginal prolapse, complete Acute
[2018-11-03] MEDS ORDERED: ATROPINE SULFATE 1 MG/10 ML SYR IVP PRN (15:13)
[2018-11-03] MEDS ORDERED: OXYCODONE/APAP 5/325 TAB PO PRN (15:13)
[2018-11-03 16:59] VITALS: BP 125/82
--- NOTE | 2018-11-03 17:46 | PDDCSUM ---
Discharge Summary Discharge Summary: Discharge diagnosis Hypertension Hypothyroid Chest pain The patient is a 68-year-old female who with past medical history of hypertension, hypothyroid who presented with chest pain. Initial troponins were negative, but she did have some ST depression in her lateral leads and the ER thought that she had possibly some mild ST elevation in V1 and V2. Subsequently a Lexiscan was ordered because of her abnormal EKG. The exercise portion of her Lexiscan stress test was equivocal but she did have an abnormal resting myocardial perfusion imaging scan. Because of this she was taken to the cardiac medical laboratory technologist and underwent left heart catheterization. Cardiac catheterization revealed no significant occlusion of any coronary vessels. Her left ventricular ejection fraction was estimated at 65%. She was mildly hypertensive but her home angiotensin receptor renita had been held. She was scheduled for follow-up at [facility] for further management of her hypertension. She was discharged home in good condition to follow up with [facility] along with her primary care provider Discharge disposition Home in good condition Discharge medications Resume home losartan Resume home Synthroid
[2018-11-03] MEDS: LOSARTAN POTASSIUM 25 MG TAB PO SCH (17:47)
== END 2018-11-03 18:27 | disposition home or self-care (01) ==
LOC: F2W 17:44
PROVIDERS: ADMIT Hospitalist; ATTEND Internal Medicine
DX: R07.9 Chest pain, unspecified (principal); I10 Essential (primary) hypertension; R94.31 Abnormal electrocardiogram [ECG] [EKG]; R11.0 Nausea; R51 Headache; E87.1 Hypo-osmolality and hyponatremia; E03.9 Hypothyroidism, unspecified; Z87.440 Personal history of urinary (tract) infections; Z90.710 Acquired absence of both cervix and uterus; Z88.2 Allergy status to sulfonamides
CPT/HCPCS: 71046; 78452; 93005; 93017; 93458; 96374; 99285; A9500; C1769; G0378; 84484-ER; J1644; J2250; J2405; J3010; Q9967

== ENCOUNTER → 2018-11-17 | Outpatient (CLI) | payer OTHER | LOC: BMCIMAGING 16:57 | PROVIDERS: ATTEND Family Medicine | DX: K59.00 Constipation, unspecified (principal) ==

== ENCOUNTER → 2018-12-21 | Outpatient (CLI) | payer OTHER ==
[~2018-12-21] MED LIST: IOPAMIDOL (ISOVUE-300) 100 ML BTL ONE
== END ==
LOC: FIMAGING 12:48
PROVIDERS: ATTEND Urology
DX: K63.89 Other specified diseases of intestine (principal); K57.90 Diverticulosis of intestine, part unspecified, without perforation or abscess without bleeding; Z87.442 Personal history of urinary calculi
CPT/HCPCS: Q9967

== ENCOUNTER 2019-02-21 20:36 | Observation (INO) | payer OTHER | END 2019-02-22 13:56 | disposition home or self-care (01) | LOC: F2W 23:55 ==